=== PATIENT | male | born 1990 | race Caucasian/White ===

== ENCOUNTER 2018-04-09 11:38 | Emergency (ER) | payer SELFPAY ==
[~2018-04-09] VITALS: Ht 177.8 cm; Wt 77.1 kg
[2018-04-09 11:50] VITALS: BP 135/84
--- NOTE | 2018-04-09 12:08 | PHYS DOC ---
Adult General Chief Complaint Chief Complaint: UPPER EXTREMITY PAIN HPI HPI Patient is a 28 year old male who presents with pain in his right arm after he had lab work taken a few days ago. He states that when the lab work was drawn he felt a sharp shooting pain going down his arm to his wrist. There is no erythema or sign of infection. He states that he will still have jolting pain in the arm. He just recently had surgery on his nose. He does have a follow-up appointment tomorrow with his surgeon. Review of Systems Review of Systems Constitutional: Denies fever or chills [] Respiratory: Denies cough or shortness of breath [] Cardiovascular: No additional information not addressed in HPI [] GI: Denies abdominal pain, nausea, vomiting, bloody stools or diarrhea [] : Denies dysuria or hematuria [] Musculoskeletal: See history of present illness Integument: Denies rash or skin lesions [] Neurologic: Denies headache, focal weakness or sensory changes [] Endocrine: Denies polyuria or polydipsia [] All other systems were reviewed and found to be within normal limits, except as documented in this note. Allergies Allergies Allergies Coded Allergies Type Severity Reaction Last Updated Verified amoxicillin Allergy Severe Anaphylaxis 04/09/18 Yes Sulfa (Sulfonamide Antibiotics) Allergy Mild hives 04/09/18 Yes Physical Exam Physical Exam Constitutional: Well developed, well nourished, no acute distress, non-toxic appearance. [] Cardiovascular:Heart rate regular rhythm, no murmur [] Lungs & Thorax: Bilateral breath sounds clear to auscultation [] Abdomen: Bowel sounds normal, soft, no tenderness, no masses, no pulsatile masses. [] Skin: Warm, dry, no erythema, no rash. [] Back: No tenderness, no CVA tenderness. [] Extremities: tenderness to right arm extending down his posterior forearm into his right wrist, no cyanosis, no clubbing, ROM intact, no edema, ecchymosis or calor noted. [] Neurologic: Alert and oriented X 3, normal motor function, normal sensory function, no focal deficits noted. [] Psychologic: Affect normal, judgement normal, mood normal. [] Current Patient Data Vital Signs Vital Signs Date Time Temp Pulse Resp B/P (MAP) Pulse Ox O2 Delivery O2 Flow Rate FiO2 04/09/18 11:50 98.2 116 20 135/84 (101) 99 Room Air 98.2 EKG EKG [] Radiology/Procedures Radiology/Procedures [] Course & Med Decision Making Course & Med Decision Making Pertinent Labs and Imaging studies reviewed. (See chart for details) []The patient has been counseled to continue his post surgical care at home. He is to follow up with neurology for nerve conduction testing if not improving in a few days. He is in agreement with this plan Dragon Disclaimer Dragon Disclaimer This electronic medical record was generated, in whole or in part, using a voice recognition dictation system. Departure Departure Impression: Primary Impression: Arm pain Disposition: HOME, SELF-CARE Condition: STABLE Referrals: NO PCP (PCP) LETICIA COLON MD Patient Instructions: Pain, Neuropathic-Brief Additional Instructions: Take ibuprofen or Tylenol for pain. Follow-up with neurology if your symptoms persist after the next few days. If worsening return to the emergency department. WAYNE HO APRN Apr 09, 2018 12:08
== END 2018-04-09 12:12 | disposition home or self-care (01) ==
LOC: ER 11:38
DX: M79.601 Pain in right arm (principal); Z88.1 Allergy status to other antibiotic agents; Z88.2 Allergy status to sulfonamides
CPT/HCPCS: 99281